=== PATIENT | female | born 1940 ===

== ENCOUNTER 2019-05-13 14:12 | Inpatient (IN) | payer MEDICARE, MEDICAID ==
[~2019-05-13] VITALS: Ht 160 cm; Wt 65.5 kg
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
[2019-05-13 16:35] VITALS: BP 156/68; BMI 25.9
[2019-05-13] MEDS ORDERED: FORTEO PEN20 MCG SQ (17:00)
[2019-05-13] MEDS ORDERED: EXELON1 PATCH .2 TRANSDERM (17:00)
[2019-05-13] MEDS ORDERED: LACTASE3000 UNIT PO (17:01)
[2019-05-13] MEDS ORDERED: VITAMIN D31000 UNIT PO (17:02)
[2019-05-13] MEDS ORDERED: HYDROCODON-ACE1 EAC7 PO (17:04)
[2019-05-13] MEDS ORDERED: REMERON15 MG PO (17:04)
[2019-05-13 21:25] VITALS: BP 157/69
[2019-05-13 21:48] VITALS: BMI 25.9
--- NOTE | 2019-05-14 00:29 | NUR ---
RECEIVED IN DAYROOM. ASSIST TO TRANSFERE TO BEDROOM AREA. CALM AND COOPERATIVE WITH CARE AND ASSESSMENT. ORIENT TO UNIT. ENCOURAGE TO EXPRESS NEEDS. REDIRECT AND REORIENT NEEDED. RESTING IN BED WITH EYES CLOSED AT THIS TIME. CONTINUE PLAN OF CARE
[2019-05-14 07:38] LABS: BASOPHILS 0.2 % (0-2); EOSINOPHILS 2.8 % (0-7); HEMATOCRIT 36.1 % (36.0-48.0); HEMOGLOBIN 12.2 g/dL (12-16); LYMPHOCYTES 41.7 % (15-50); MCH 30.5 pg (26.0-34.0); MCHC 33.8 g/dL (31.0-37.0); MCV 90.3 fL (80.0-100.0); MEAN PLATELET VOLUME 10.8 fL (7.4-10.4); MONOCYTES 7.9 % (2-11); NEUTROPHILS 47.4 % (40-80); PLATELET COUNT 177 10x3/uL (130-400); RDW 14.2 % (11.5-14.5); WBC 4.9 10x3/uL (4.8-10.8)
[2019-05-14 08:19] LABS: ALBUMIN 3.8 g/dL (3.4-5.0); ANION GAP 14.7 mmol/L (8-16); BILIRUBIN - TOTAL 0.66 mg/dL (0.2-1.3); CALCIUM 9.6 mg/dL (8.5-10.1); CARBON DIOXIDE 25.5 mmol/L (21.0-32.0); CHOL - HDL RATIO 5.6 ratio (2.3-4.1); CREATININE - SERUM 0.8 mg/dL (0.6-1.3); LDL-HDL RATIO 4.1 ratio (1.5-3.5); POTASSIUM - SERUM 4.2 mmol/L (3.5-5.1); PROTEIN - SERUM 7.3 g/dL (6.4-8.2); THYROID STIMULATING HORMONE 7.81 uIU/mL (0.36-3.74)
[2019-05-14 10:13] VITALS: BP 141/54
--- NOTE | 2019-05-14 11:50 | NUR ---
RECEIVED PATIENT IN DAYROOM, ALERT, CALM, COOPERATIVE, NO AGGRESSION NOTED. MEDS ADMIN PER ORDERS WITH COMPLETE MED COMPLIANCE NOTED. COOPERATIVE WITH STAFF AND GROUP THERAPY, PLEASANT. CONT POC DIRECTED.
[2019-05-14 13:28] VITALS: Ht 160 cm; Wt 65.5 kg
--- NOTE | 2019-05-14 19:40 | NUR ---
RECEIVED PATIENT AMBULATORY IN THE DAYROOM. ORIENTED TO SELF AND IS AWARE SHE IS IN THE HOSPITAL BUT DID NOT KNOW WHICH HOSPITAL. QUAKER AND WILL ASK PEERS IF THEY WANT PRAYER. PLEASANT AND COOPERATIVE. FREQUENTLY ASK WHEN SHE CAN GO TO BED. ADMINISTER MEDS PER ORDERS Q SHIFT AND MONITOR COMPLIANCE. REORIENT Q SHIFT AND NEEDED. MED COMPLIANT. REORIENTS HOWEVER IS FORGETFUL AND DOES NOT RETAIN INFORMATION, CONTINUE POC AND PROVIDE SAFE ENVIRONMENT.
[2019-05-14 22:52] VITALS: BP 162/78
[2019-05-15 07:14] LABS: RAPID PLASMA REAGIN Non Reactive (Non Reactive)
[2019-05-15 07:33] LABS: APPEARANCE CLEAR (CLEAR); BILIRUBIN NEGATIVE (NEGATIVE); COLOR YELLOW (YELLOW); GLUCOSE NEGATIVE (NEGATIVE); KETONE NEGATIVE (NEGATIVE); NITRITE NEGATIVE (NEGATIVE); PROTEIN NEGATIVE (NEGATIVE); SPECIFIC GRAVITY 1.015 (1.005-1.020); UROBILINOGEN NORMAL (NORMAL)
[2019-05-15 07:37] LABS: BACTERIA MODERATE /hpf (NONE SEEN); EPITHELIAL CELLS 0-5 /hpf (0-5); MUCUS <1+ /lpf (NONE SEEN); WHITE CELLS - URINE 0-5 /hpf (0-5)
[2019-05-15 07:38] LABS: HYALINE CAST RARE /lpf (NONE SEEN)
[2019-05-15 09:00] VITALS: BP 107/50
--- NOTE | 2019-05-15 10:00 | NUR ---
PATIENT SITTING IN GROUPS WITH PEERS. RESP EVEN AND NONLABORED. NO ACUTE DISTRESS NOTED. PATIENT COMPLIANT WITH MEDICATIONS, ASSESSMENTS AND VITALS. PATIENT CONFUSED AND ORIENTED TO SELF ONLY. PT IS VERY FRIENDLY WITH STAFF AND PEERS. PT AMBULATES PER SELF. WILL CONT PLAN OF CARE.
--- NOTE | 2019-05-15 13:19 | NUR ---
NUTRITION F/U PT TOLERATING REG DIET WITH 75% AVERAGE INTAKE RECENT MEALS. WILL CONTINUE TO PROVIDE REG DIET, MONITOR PO INTAKE AND WT. RD FOLLOWING
[2019-05-15 19:31] VITALS: BP 140/70
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
[2019-05-16 09:56] VITALS: BP 120/59
--- NOTE | 2019-05-16 10:00 | NUR ---
PATIENT LAYING ON COUCH WITH BLANKETS ON HER. RESP EVEN AND NONLABORED. NO ACUTE DISTESS NOTED. PATIENT IS COMPLIANT WITH MEDS, VITALS, AND ASSESSMENTS. PT IS WANDERING AT TIMES. PT C/O OF WANTING TO GO HOME WITH HER . PT IS ALERT AND ORIENTED TO SELF ONLY. WILL CONT PLAN OF CARE.
--- NOTE | 2019-05-16 12:01 | NUR ---
PATIENT DAUGHTER BROUGHT A BROWN SWEATER FOR PATIENT AND HER FORTEO MEDICATION FFROM HOME. SWEATER ADDED TO INVENTORY SHEET AND MEDICATION IS TO BE IN [place]. WILL HAVE PHARMACY GET A LABEL FOR PATIENT.
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
--- NOTE | 2019-05-16 15:42 | PN ---
PATIENT:ASAD MORGAN MEDICAL RECORD: [id number] LOCATION:[facility] Pereira ADMISSION DATE: 05/13/19 PROGRESS NOTE DATE OF SERVICE: 05/15/2019 SUBJECTIVE: The patient's case was discussed with staff. She has no new complaint. OBJECTIVE: The patient is agitated and exit seeking. So far, the staff has been able to redirect her, but it is with difficulty and I can easily see her becoming quite agitated. She has almost no insight about her impairment. She is generally pretty argumentative about her situation. ASSESSMENT: No change in diagnoses. PLAN: Current medicines have been reviewed and will be maintained. Long-term prognosis is guarded. I am going to start her on Namenda at a dose of 5 mg twice daily. TRANSINT:[id number] Voice Confirmation ID: [id number] DOCUMENT ID: [id number] JAQUAN KATZ MD at 1542 CC: [id number] DICTATION DATE: 05/15/19 1503 GUN FERTILIZER: 05/15/19 1759 ADM IN [place] [address] [place] [address]
--- NOTE | 2019-05-16 18:32 | NUR ---
PATIENT IS HAVING UNSTEADY GAIT. NURSE ASSIST WITH AMBULATION.
[2019-05-16 20:00] VITALS: BP 164/75
--- NOTE | 2019-05-16 22:27 | NUR ---
B.) PT IS ALERT AND ORIENTED TO SELF ONLY. SHE IS AMBULATORY WITHOUT ASSIST. SHE IS PLEASANT WITH STAFF AND PEERS. PT STATES "I NEED A RIDE TO GET OUT OF HERE." SHE SEEMS TO HAVE SHORT TERM MEMORY ISSUES. SHE CAN BE PLEASANT WITH STAFF AND PEERS. I.) REDIRECT AND REORIENT TO SITUATIONS AND PLACE OFTEN. R.) DESPITE MULTIPLE ATTEMPTS TO REORIENT SHE REMAINS CONFUSED. P.) CONTINUE PLAN OF CARE
[2019-05-17 10:51] VITALS: BP 131/51
--- NOTE | 2019-05-17 11:50 | NUR ---
RECEIVED PT IN DINING ROOM FOR B'FAST, ALERT, CALM, COOPERATIVE, QUITE COMFUSED. MEDS ADMIN PER ORDERS WITH COMPLETE MED COMPLIANCE NOTED. SPOUSE CALLED TO CHECK ON PT. COOPERATIVE WITH STAFF AND PLAN OF CARE. CONT POC DIRECTED. NO AGGRESSION NOTED.
--- NOTE | 2019-05-17 12:25 | PN ---
PATIENT:ASAD MORGAN MEDICAL RECORD: [id number] LOCATION:[facility] Pereira ADMISSION DATE: 05/13/19 PROGRESS NOTE DATE OF SERVICE: 05/16/2019 SUBJECTIVE: The patient's case was discussed with staff. She has no new complaint. OBJECTIVE: The patient is in good behavioral control. She has poor insight about her condition. She tolerates her medicines well. ASSESSMENT: No change in diagnoses. PLAN: The patient has not been aggressive. She is still quite confused. She has tolerated her initial dose of Namenda well. Obviously has not had an opportunity to make any significant impact on her cognition. ASSESSMENT: No change in diagnoses. TRANSINT:[id number] Voice Confirmation ID: [id number] DOCUMENT ID: [id number] JAQUAN KATZ MD at 1225 CC: [id number] DICTATION DATE: 05/16/19 1617 CLIPPER AUTOMATIC: 05/16/19 2241 ADM IN [place] [address] [place] [address]
[2019-05-17 20:00] VITALS: BP 153/58
--- NOTE | 2019-05-18 03:34 | NUR ---
B.) PT IS ALERT AND ORIENTED TO SELF AND PLACE. SHE HAS POOR INSIGHT TO HER SITUATION. SHE AMBULATES WITHOUT ASSISTANCE AND SHE CAN MAKE HER NEEDS KNOWN. I.) PROVIDED PM MEDICATIONS AND REORIENT TO SITUATION AND TIME OFTEN. R.) COMPLIANT WITH ALL MEDICATIONS. DESPITE MULTIPLE ATTEMPTS TO REORIENT SHE REMAINS CONFUSED TO HER SITUATION. P.) CONTINUE PLAN OF CARE
[2019-05-18 07:00] VITALS: BP 112/59
--- NOTE | 2019-05-18 10:23 | NUR ---
RECEIVED PATIENT IN DINING ROOM FOR B'FAST, ALERT, CALM, RESTING QUIETLY ON COUCH WITH EYES CLOSED AT THIS TIME. COOPERATIVE WITH PLAN OF CARE. CONT CONFUSION WHICH BECOMES WORSE IN THE EVENING HOURS. MEDS ADMIN PER ORDERS WITH COMPLETE MED COMPLIANCE NOTED. CONT POC DIRECTED.
--- NOTE | 2019-05-18 12:29 | PN ---
PATIENT:ASAD MORGAN MEDICAL RECORD: [id number] LOCATION:ASHLEY Pereira ADMISSION DATE: 05/13/19 PROGRESS NOTE DATE OF SERVICE: 05/17/2019 SUBJECTIVE: The patient's case was discussed with staff. She has no new complaint. OBJECTIVE: The patient is in good behavioral control with poor insight about her condition. ASSESSMENT: No change in diagnoses. PLAN: Supportive and educational interventions were made. TRANSINT:[id number] Voice Confirmation ID: [id number] DOCUMENT ID: [id number] JAQUAN KATZ MD at 1229 CC: [id number] DICTATION DATE: 05/17/19 1235 POT MAKER: 05/17/19 1448 ADM IN [place] [id number] [place] [address]
[2019-05-18 20:15] VITALS: BP 109/54
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
[2019-05-19 07:00] VITALS: BP 133/69
--- NOTE | 2019-05-19 13:18 | NUR ---
RECEIVED PT IN DINING ROOM FOR B'FAST, ALERT, CALM, COOPERATIVE, WITHDRAWN FROM PEERS PREFERRING TO SIT ALONE. MEDS ADMIN PER ORDERS WITH COMPLETE MED COMPLIANCE NOTED. CONT POC DIRECTED.
--- NOTE | 2019-05-19 14:28 | PN ---
PATIENT:ASAD MORGAN MEDICAL RECORD: [id number] LOCATION:ASHLEY Pereira ADMISSION DATE: 05/13/19 PROGRESS NOTE DATE OF SERVICE: 05/18/2019 SUBJECTIVE: The patient's case was discussed with staff. She has no new complaint. OBJECTIVE: The patient did not eat well at all yesterday. The reasons for this are unclear. She continues to be hyperreligious. She is sleeping well. ASSESSMENT: No change in diagnoses. PLAN: Current medicines have been reviewed and will be maintained. TRANSINT:[id number] Voice Confirmation ID: [id number] DOCUMENT ID: [id number] JAQUAN KATZ MD at 1428 CC: [id number] DICTATION DATE: 05/18/19 1244 METAL TILE SETTER: 05/18/[address] [facility] [address] [place] [address]
--- NOTE | 2019-05-19 18:37 | NUR ---
PATIENT'S FAMILY CALLED ASKINIG WHY PATIENT IS WEARING THE SAME OUTFIT THAT SHE WAS WEARING YESTERDAY. FAMILY STATES THAT THEY WERE AWARE THAT THE CLOTHES ARE LAUNDERED EACH NIGHT, BUT STILL WANTED PT TO WEAR SOMETHING DIFFERENT. FAMILY INFORMED THAT PATIENT PICKS OUT HER OWN CLOTHES EACH DAY AND APPARENTLY THE FLORAL PRINT SKIRT IN QUESTION IS THE PATIENT'S FAVORITE. DAUGHTER STATED THE SHE, TOO, HAS FAVORITE CLOTHING HERSELF. ONCOMING STAFF MADE AWARE OF THE SITUATION.
--- NOTE | 2019-05-19 19:55 | NUR ---
REC'D PATIENT SITTING IN DAYROOM. POOR INTERACTION WITH PEERS. NO INSIGHT INTO THE REASON FOR HOSPITALIZATION. ARGUMENTATIVE WHEN PATIENT BELIEVES SHE IS STAYING IN A DIFFERENT ROOM OR PART OF THE HOSPITAL. ADMINISTER MEDS PER ORDERS Q SHIFT AND MONITOR COMPLIANCE. REORIENT WITH REALITY BASED INFORMATION. MED COMPLIANT. POOR REORIENTATION DUE TO IMPAIRED ABILITY TO SEPARATE REALITY FROM FANTASY. CONTINUE POC AND PROVIDE SAFE ENVIRONMENT.
[2019-05-19 23:46] VITALS: BP 124/64
[2019-05-20 09:43] VITALS: BP 147/70
--- NOTE | 2019-05-20 15:33 | PN ---
PATIENT:ASAD MORGAN MEDICAL RECORD: [id number] LOCATION:ASHLEY Pereira ADMISSION DATE: 05/13/19 PROGRESS NOTE DATE OF SERVICE: 05/19/2019 SUBJECTIVE: The patient's case was discussed with staff. She has no new complaint. OBJECTIVE: The patient denies intent to harm herself or others. She does tolerate her medicines well. ASSESSMENT: No change in diagnoses. PLAN: The patient's long-term prognosis is guarded. I anticipate she can be transitioned out of the hospital soon if this level of improvement continues. TRANSINT:[id number] Voice Confirmation ID: [id number] DOCUMENT ID: [id number] JAQUAN KATZ MD at 1533 CC: [id number] DICTATION DATE: 05/19/19 1526 CUSTODIAL ENGINEER: 05/19/19 1602 ADM IN [facility] [address] [place] [address]
--- NOTE | 2019-05-20 16:02 | NUR ---
ORIENTED TO SELF.COMPLIANT WITH STAFF AND MEDS.PERFORMS SELF CARE.WILL CONTINUE WITH CURRENT PLAN OF CARE,MONITOR FOR CHANGES AND SAFETY.
[2019-05-20 20:31] VITALS: BP 152/67
--- NOTE | 2019-05-21 02:23 | NUR ---
B) patient is alert and oriented to person, confused and wanders at times, calm and cooperative, provides own self care I) Administered scheduled medications as ordered, monitored for safety R) Mediation compliant, follow unit milieu P) Continue plan of care.
[2019-05-21 08:38] VITALS: BP 148/64
--- NOTE | 2019-05-21 10:42 | NUR ---
PT IS ALERT AND ORIENTED TO PERSON ONLY. PT IS VERY CONFUSED AND WANDERS AT TIMES. CALM AND COOPERATIVE WITH ASSESSMENT. PRESCRIBED MEDS PROVIDED ORDERED. MED COMPLIANT. NO BEHAVIORS NOTED AT THIS TIME. PT RESTING IN RECLINING CHAIR WITH STAFF PRESENT FOR SAFTEY. FALL PRECAUTIONS IN PLACE. WILL CPOC.
--- NOTE | 2019-05-21 11:35 | PN ---
PATIENT:ASAD MORGAN MEDICAL RECORD: [id number] LOCATION:[facility] ADMISSION DATE: 05/13/19 PROGRESS NOTE DATE OF SERVICE: 05/20/2019 SUBJECTIVE: The patient's case was discussed with staff. She has no new complaint. OBJECTIVE: The patient denies intent to harm herself or others. She is tolerating her medicines well. ASSESSMENT: No change in diagnoses. PLAN: I anticipate she can be transitioned out of the hospital soon. Her long-term prognosis is guarded. TRANSINT:[id number] Voice Confirmation ID: [id number] DOCUMENT ID: [id number] JAQUAN KATZ MD at 1135 CC: [id number] DICTATION DATE: 05/20/19 1628 COUNTY RECORDS MANAGEMENT OFFICER: 05/20/19 1638 ADM IN [place] [id number] [place] [address]
[2019-05-21 20:00] VITALS: BP 155/74
--- NOTE | 2019-05-21 21:20 | NUR ---
RECEIVED IN HALLWAY OUTSIDE OF NURSES STATION. SOCIALIZING WITH STAFF AND PEERS. CALM AND COOPERATIVE WITH CARE AND ASSESSMENT. NO WANDERING. NO AGGRESSION. REDIRECT AND REORIENT NEEDED. RESTING IN BED WITH EYES CLOSED AT THIS TIME. CONTINUE PLAN OF CARE.
--- NOTE | 2019-05-22 10:00 | NUR ---
RECEIVED PATIENT IN DINING ROOM FOR B'FAST ALERT, CALM, COOPERATIVE. MEDS ADMIN PER ORDERS WITH COMPLETE MED COMPLIANCE NOTED. CONT POC DIRECTED.
--- NOTE | 2019-05-22 10:08 | PN ---
PATIENT:ASAD MORGAN MEDICAL RECORD: [id number] LOCATION:ASH[facility] ADMISSION DATE: 05/13/19 PROGRESS NOTE DATE OF SERVICE: 05/21/2019 SUBJECTIVE: The patient's case was discussed with staff. She has no new complaint. OBJECTIVE: The patient denies intent to harm herself or others. She is hyper-yarsanism. She has very limited insight about her situation. ASSESSMENT: No change in diagnoses. PLAN: Supportive and educational interventions were made. Long-term prognosis is guarded. I am going to keep the patient on her current medications. TRANSINT:[id number] Voice Confirmation ID: [id number] DOCUMENT ID: [id number] JAQUAN KATZ MD at 1008 CC: [id number] DICTATION DATE: 05/21/19 1250 FINISHED CARPET INSPECTOR: 05/21/19 1255 ADM IN [place] [address] [place] [address]
[2019-05-22 10:46] VITALS: BP 144/66
--- NOTE | 2019-05-22 12:47 | NUR ---
Team Treatment Note: Diet: Regular Diet PO Intake: 76% per 9 meals Wt: 146.2lbs on 05/14; 144.2lbs on 05/18 BM: x 1 on 05/18 Meds: MEGACE, Humalog, Metformin, Lactaid, Vit D, Lipitor Labs: Chol- 211(H), LDL- 155(H) Will continue to monitor closely Clincial Dietitian Following
--- NOTE | 2019-05-22 19:32 | NUR ---
PT C/O LOWER RIGHT JAW PAIN AND TENDERNESS. PT STATES THAT SHE HAS BEEN WEARING HER LOWER DENTURES FOR A FEW DAYS. HER JAW APPERS SWOLLEN AND RED. I INFORMED HER TO LEAVE OUT HER LOWER SET UNTIL SHE SEES HER DOCTOR IN THE MORNING.
[2019-05-22 20:00] VITALS: BP 158/67
--- NOTE | 2019-05-22 22:13 | NUR ---
B.) PT IS ALERT AND ORIENTED TO SELF AND SITUATION. PT SEEMS PARANOID THAT STRANGE MEN WOULD COME INTO HER ROOM AT NIGHT IT DOESNT LOCK. SHE CAN MAKE HER NEEDS KNOWN. I.) REDIRECT AND REORIENT OFTEN. PROVIDED PM MEDICATIONS. R.) PT VERBALIZES UNDERSTANDING THAT NO STRANGE MEN WILL COME INTO HER ROOM. COMPLIANT WITH ALL MEDICATIONS. P.) CONTINUE PLAN OF CARE
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
[2019-05-23 09:17] VITALS: BP 161/74
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
[2019-05-23 20:41] VITALS: BP 156/59
--- NOTE | 2019-05-24 07:56 | NUR ---
RE'D PATIENT SITTING IN CHAIR AWAITING BREAKFAST. RESP EVEN AND NONLABORED. NO ACUTE DISTRESS NOTED. PT IS CONFUSED. ALERT TO SELF ONLY. VERY PLESANT WITH STAFF AND PEERS. NO BEHAVIORS NOTED AT THIS TIME. PT IS COMPLIANT WITH MEDICATIONS, ASSESSMENTS AND VITALS. PT AMBULATES. REQUIRES SOME ASSISTANCE WITH ADL'S. WILL CONT PLAN OF CARE.
[2019-05-24 08:15] VITALS: BP 154/67
[2019-05-24 09:20] VITALS: BP 154/67
--- NOTE | 2019-05-24 09:32 | NUR ---
B) The patient is awake, she is sleepy this am, she is pleasant and she has not shown any aggression this am. She knows her name, but not place or time. I) Provide prescribed meds. R) The patient is compliant with meds. P) Continue POC.
--- NOTE | 2019-05-24 12:39 | PN ---
PATIENT:ASAD MORGAN MEDICAL RECORD: [id number] LOCATION:ASHLEY Pereira ADMISSION DATE: 05/13/19 PROGRESS NOTE DATE OF SERVICE: 05/23/2019 SUBJECTIVE: The patient's case was discussed with staff. She has no new complaint. OBJECTIVE: The patient denies intent to harm herself or others. She is impaired cognitively, but has not been a behavior problem. ASSESSMENT: No change in diagnoses. PLAN: The patient will be transitioned out of the hospital tomorrow. Her long-term prognosis is guarded. Both supportive and educational interventions were made. Follow up will be with her primary care physician. TRANSINT:[id number] Voice Confirmation ID: [id number] DOCUMENT ID: [id number] JAQUAN KATZ MD at 1239 CC: [id number] DICTATION DATE: 05/23/19 180 MAIL CLERKS SUPERVISOR: 05/23/19 1850 ADM IN [place] [id number] [place] [address]
--- NOTE | 2019-05-24 14:12 | NUR ---
The patient is weighed and her meds are called to the pharmacy as the computer has a glitch. Medication education review with patient and family. Spouse requested meds be called to [facility] here in [place]. The patient ambulated with family and staff assist to her daughter's vehicle.
--- NOTE | 2019-05-25 11:14 | PN ---
PATIENT:ASAD MORGAN MEDICAL RECORD: [id number] LOCATION:ASHLEY Pereira ADMISSION DATE: 05/13/19 PROGRESS NOTE DATE OF SERVICE: 05/24/2019 SUBJECTIVE: The patient's case was discussed with staff. She has no new complaint. OBJECTIVE: The patient is significantly and seriously impaired cognitively. She has no thoughts of harming herself or others. She is tolerating her medications well. ASSESSMENT: No change in diagnosis. PLAN: Current medicines have been reviewed and will be maintained. Long-term prognosis is guarded. She is going to be discharged home with her family today. TRANSINT:[id number] Voice Confirmation ID: [id number] DOCUMENT ID: [id number] JAQUAN KATZ MD at 1114 CC: [id number] DICTATION DATE: 05/24/19 1249 PROTECTION OFFICER: 05/24/19 1253 DIS IN 05/24/19 [id number] [place] [address]
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
== END 2019-05-24 14:15 | disposition home or self-care (01) | DRG 57 ==
LOC: D.PSYCH 14:12
PROVIDERS: ADMIT Psychiatry & Neurology Psychiatry; ATTEND Psychiatry & Neurology Psychiatry
DX: G30.9 Alzheimer's disease, unspecified (principal); F02.81 Dementia in other diseases classified elsewhere, unspecified severity, with behavioral disturbance; I10 Essential (primary) hypertension; E03.9 Hypothyroidism, unspecified; E11.9 Type 2 diabetes mellitus without complications; E78.5 Hyperlipidemia, unspecified; M81.0 Age-related osteoporosis without current pathological fracture; E55.9 Vitamin D deficiency, unspecified; R63.0 Anorexia